=== PATIENT | male | born 1990 | race Caucasian/White ===

== ENCOUNTER 2021-02-12 15:08 | Emergency (ER) | payer OTHER ==
[~2021-02-12] VITALS: Ht 185.4 cm; Wt 100.0 kg
[2021-02-12 15:08] VITALS: BP 132/78
[2021-02-12] MEDS ORDERED: BACITRACIN ZINC TOPICAL OINT PACKET. TP ONE (15:30)
[2021-02-12] MEDS ORDERED: DIPH,PERTUSS(ACELL),TET VAC/PF 0.5 ML SYRINGE. VAX IM ONE (15:45)
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
== END 2021-02-12 16:14 | disposition home or self-care (01) ==
LOC: ER 15:08
DX: S60.416A Abrasion of right little finger, initial encounter (principal); Z77.21 Contact with and (suspected) exposure to potentially hazardous body fluids; W50.4XXA Accidental scratch by another person, initial encounter; Y93.89 Activity, other specified; Y92.89 Other specified places as the place of occurrence of the external cause; Y99.8 Other external cause status
CPT/HCPCS: 86703; 86705; 86709; 86803; 87340; 90471; 90715; 99283-25